=== PATIENT | female | born 1940 | race Caucasian/White ===

== ENCOUNTER → 2017-12-23 | Outpatient (REF) | payer OTHER, MEDICAID ==
[2017-12-23 16:06] LABS: CREATININE FOR GFR 0.73 MG/DL (0.55-1.30); GLOMERULAR FILTRATION RATE > 60.0 (>39)
[2017-12-23 16:06] LABS: BLOOD UREA NITROGEN 17 MG/DL (7-18)
== END ==
LOC: M LABDRAW1 15:13
DX: M51.36 Other intervertebral disc degeneration, lumbar region (principal)

== ENCOUNTER 2018-09-23 09:32 | Inpatient (IN) | payer MEDICARE, MEDICAID ==
--- NOTE | 2018-09-19 23:27 | HPE ---
DATE OF ADMISSION: 09/23/2018 ATTENDING PHYSICIAN: Dr. Javier Joel CHIEF COMPLAINT: Left hip pain and stiffness. HISTORY: This is a pleasant 77-year-old female patient with progressively worsening left hip pain and stiffness. She has failed to improve with conservative management and has elected for surgery for her continuing symptoms. She has consented for a left total hip arthroplasty by Dr. Javier Joel. ALLERGIES: CILLINS and ERYTHROMYCIN. CURRENT MEDICATIONS: DICTATION ENDS HERE
--- NOTE | 2018-09-22 14:05 | HPE ---
DATE OF ADMISSION: 09/23/2018 ATTENDING PHYSICIAN: Dr. Javier Joel CHIEF COMPLAINT: Left hip pain and stiffness. HISTORY: This is a pleasant 77-year-old female patient with progressively worsening left hip pain and stiffness. She has failed to improve with conservative management and has elected for surgery for her continuing symptoms. She has consented for a left total hip arthroplasty by Dr. Javier Joel. ALLERGIES: CILLINS and ERYTHROMYCIN. CURRENT MEDICATIONS: - albuterol three times a day p.r.n. - C-PAP - meloxicam 7.5 half a tablet daily - omeprazole 40 mg one p.o. every other day - pravastatin 20 mg one p.o. daily PAST MEDICAL HISTORY: Hypercholesterolemia, asthma, anxiety, depression, Sjogren syndrome, renal cyst, Cricket syndrome, lumbosacral radiculopathy, gastroesophageal reflux disease, transient ischemic attack, fibromyalgia, vitamin D deficiency, osteoporosis. PAST SURGICAL HISTORY: Ovarian cyst removal, sinus surgery, tendon release, breast biopsy. FAMILY HISTORY: Father - cancer. Mother - cancer. SOCIAL HISTORY: The patient does not smoke or consume alcohol. REVIEW OF SYSTEMS: Denies fever, chills, chest pain, shortness breath, nausea, vomiting, or diarrhea. Denies any recent upper respiratory or urinary tract infection symptoms. PHYSICAL EXAMINATION: Height 5 feet, weight 178, temperature 98.7, blood pressure 130/70, pulse 71, respirations 17. She is a normocephalic, atraumatic female patient who is alert and oriented and has appropriate mood and affect. S1 and S2 auscultated with no murmurs, rubs or gallops. Lungs: Clear to auscultation bilaterally with no wheezes, rales or rhonchi. Abdomen: Soft, nontender. Examination of the left hip reveals discomfort with range of motion. Overlying skin is intact. The left lower extremity is well perfused. LABORATORY DATA: White blood count 7.6, red blood count 4.7, hemoglobin 14.2, hematocrit 44.1, BUN 19, creatinine 0.8. ESR is 24. EKG: Normal sinus rhythm. Abnormal R-wave progression. Late transition. Old inferior infarct. CHEST X-RAY: No focal consolidation or acute cardiopulmonary process. MEDICAL OPTIMIZATION: By Dr. Cornelius reviewed and on chart today. IMPRESSION: Symptomatic left hip arthritis. PLAN: Consented for left total hip arthroplasty by Dr. Joel
[2018-09-23] VITALS (16 sets, daily range): BP systolic 112–153; BP diastolic 53–123; O2SAT 99
[~2018-09-23] VITALS: Ht 152.4 cm; Wt 77.1 kg
[~2018-09-23 09:32] MED LIST: ACET-683 PO; CelecoXIB 400 MG CAP PO ONE; LR 1,000 ML IV ONE; MELO7.5T35 PO; OMEP40CA2 PO; PREGABALIN 75 MG CAP(LYRICA) PO ONE
[2018-09-23 10:20] LABS: INR 0.93; PROTHROMBIN TIME 12.2 SECONDS (11.8-14.0)
[2018-09-23] MEDS ORDERED: VITA30004 PO (10:59)
[2018-09-23] MEDS ORDERED: PRAV10TA3 PO (10:59)
[2018-09-23] MEDS ORDERED: PROPOFOL 200 MG/20 ML VIAL As Ordered ONE ×2 (11:52→14:57)
[2018-09-23] MEDS ORDERED: LIDOCAINE 2% INJ 100 MG/5 ML SDV (FOR ANES.) As Ordered ONE (11:52)
[2018-09-23] MEDS ORDERED: MIDAZOLAM INJ 2 MG/2 ML VIAL (J2250) As Ordered ONE ×3 (11:52→15:56)
[2018-09-23] MEDS ORDERED: fentaNYL 100 MCG/2 ML INJECTION (J3010) As Ordered ONE ×2 (11:52→16:36)
[2018-09-23] MEDS ORDERED: BUPIVACAINE/EPIN 0.25% 30 ML VIAL As Ordered ONE (11:55)
[2018-09-23] MEDS ORDERED: BUPIVACAINE HCL 0.5% 10 ML VIAL As Ordered ONE (11:55)
[2018-09-23] MEDS ORDERED: TRANEXAMIC ACID 100 MG/ML 10ML VIAL As Ordered ONE (11:55)
[2018-09-23] MEDS ORDERED: BUPIVACAINE LIPOSOME/PF 1.3% 20ML VIAL (13.3MG/ML)(EXPAREL)(C9290 PER1MG) As Ordered ONE (11:55)
[2018-09-23] MEDS ORDERED: ceFAZolin 1GM INJ (J0690 PER 500MG) As Ordered ONE (11:55)
[2018-09-23] MEDS ORDERED: EPINEPHrine INJ 1 MG/ML 1ML AMP As Ordered ONE (11:55)
[2018-09-23] MEDS ORDERED: ceFAZolin 2 GM/D5W 50 ML IV BAG (J0690 PER 500MG) As Ordered ONE (12:38)
[2018-09-23] MEDS ORDERED: ePHEDrine SULFATE 25 MG/5 ML(5MG/ML) SYRINGE As Ordered ONE (13:49)
[2018-09-23] MEDS ORDERED: KETAMINE HCL 200 MG/20 ML VIAL As Ordered ONE (13:51)
[2018-09-23] MEDS ORDERED: ACETAMINOPHEN 1000MG 100ML IV BTL (OFIRMEV) (J0131 PER 10MG) As Ordered ONE (14:00)
[2018-09-23] MEDS ORDERED: PHENYLephrine HCL 500 MCG/5 ML (100MCG/ML) SYRINGE (J2370) As Ordered ONE (14:24)
[2018-09-23] MEDS ORDERED: ONDANSETRON 4MG/2ML VIAL (J2405) As Ordered ONE (15:33)
[2018-09-23] MEDS: fentaNYL 100 MCG/2 ML INJECTION (J3010) IV PRN ×4 (16:36→16:56)
[2018-09-23] MEDS ORDERED: PERCOCET 5MG/325MG TAB As Ordered ONE (16:36)
[2018-09-23] MEDS: PERCOCET 5MG/325MG TAB PO PRN ×3 (16:36→21:38)
[2018-09-23] MEDS ORDERED: HYDROMORPHONE HCL 0.5 MG/ 0.5 ML SYRINGE (J1170 PER 1) IV PRN ×3 (16:45→17:00)
[2018-09-23] MEDS ORDERED: ONDANSETRON 4MG/2ML VIAL (J2405) IV PRN (16:45)
[2018-09-23] MEDS ORDERED: LR 1,000 ML IV SCH (16:45)
--- NOTE | 2018-09-23 17:11 | REP ---
Clinical: Status post left hip replacement. Technique: AP and cross-table lateral views. Findings: The patient is noted to be status post left hip arthroplasty with normal appearance and positioning to the femoral and acetabular components. Overlying postsurgical changes are appreciated. Impression: Normal status post left hip arthroplasty. Electronically Signed by Konstantin Spangelr MD 09/23/2018 05:03 P
[2018-09-23] MEDS ORDERED: PROMETHAZINE INJ 25 MG/ML VIAL (J2550) IV PRN (17:15)
[2018-09-23] MEDS ORDERED: FLEET ENEMA PR PRN (17:15)
[2018-09-23] MEDS ORDERED: ACETAMINOPHEN TAB 650MG DOSE (2X325MG) PO PRN ×2 (17:15)
--- NOTE | 2018-09-23 17:18 | CR.PDOC ---
General Date of Consultation: Sep 23, 2018 Consultation REASON FOR CONSULTATION/CHIEF COMPLAINT: - Who presented to [facility] for an elective orthopedic procedure. - Medical management HISTORY OF PRESENT ILLNESS: Patient is a 77-year-old female with a PMHx of TIA (2015), Asthma, DLP, Sjogren Syndrome, Art Syndrome, Lumbosacral radiculopathy / Chronic back pain, Vitamin D deficiency, Osteoporosis, GERD who presented to [facility] for an elective total left hip arthroplasty. Patient received medical clearance from her outpatient provider, Dr. Lagos. Completed blood work, EKG, and CXR. Patient had reported that she had failed conservative therapy and was scheduled for an elective procedure with orthopedic surgery. Patient was seen postoperatively. She denied chest pain, shortness of breath, palpitations, nausea, vomiting, abdominal pain, constipation, diarrhea, discomfort with urination. Patient has reported that her appetite is generally fine and that her weight has been fairly consistent. ALLERGIES: Please see below. HOME MEDICATIONS: Please see below. PAST MEDICAL HISTORY: TIA (2016), Asthma, DLP, Sjogren Syndrome, Art Syndrome, Lumbosacral radiculopathy / Chronic back pain, Vitamin D deficiency, Osteoporosis, GERD PAST SURGICAL HISTORY: Ovarian cyst removal Sinus surgery Carpal tunnel release Breast biopsy on the right, reported negative FAMILY HISTORY: - Mother and father with a history of malignancy SOCIAL HISTORY: - Denies the use of illicit drugs; social alcohol use; patient quit smoking 18 years ago - Denies recent travel or sick contacts - Lives with friend - Occupation; retired; used to work in the [employer] REVIEW OF SYSTEMS: 10 point review of systems complete, all negative otherwise stated in HPI PHYSICAL EXAMINATION: - Vitals: BP 144/71, HR 76, RR 18, Sat 97%RA, Temp 98.3F - General: Lying in bed, No acute distress, Speaking in full sentences, AAOx3 - HEENT: NC, AT, PERRLA - CVS: RRR, +S1S2 - Lungs: Fair air entry bilaterally, No appreciable wheezing / rales / rhonchi - Abdomen: Soft, Non-distended, Non-tender - Extremities: No lower extremity edema, No calf tenderness, Left hip with dressing present - Neuro: No focal motor or sensory deficit - Skin: No visible rashes LABORATORY DATA: Please see below. ASSESSMENT/PLAN: Left hip pain - s/p Total Left hip arthroplasty (POD#0) - Presented to [facility] for an elective orthopedic procedure - Received outpatient medical clearance from her primary care provider - Pain control, anticoagulation and physical therapy at the direction of primary orthopedic team TIA (2015) Asthma - No evidence of exacerbation - c/w inhaled therapy PRN DLP - Will resume Pravastatin Sjogren Syndrome - Patient has reported that she was taken off medications Lumbosacral radiculopathy / Chronic back pain - c/w current pain control regimen Vitamin D deficiency - will resume supplementation as an outpatient Osteoporosis GERD / Art Syndrome - Will resume Omeprazole DVT prophylaxis - as per orthopedic surgery Vital Signs/I&O Vital Signs Date Time Temp Pulse Resp B/P (MAP) Pulse Ox O2 Delivery O2 Flow Rate FiO2 09/23/18 17:07 97.9 70 16 128/59 92 3.0 Laboratory Data Labs 24H Laboratory Tests 2 09/23/18 09:53: Prothrombin Time 12.2, Prothromb Time International Ratio 0.93 Allergies Coded Allergies: No Known Allergies (Unverified , 09/23/18) Home Medications Scheduled Acetaminophen (Acetaminophen) 500 Mg Tablet, 1 TAB PO BID for fever for 30 Days, #60 (Reported) Cholecalciferol (Vitamin D3) (Vitamin D3) 3,000 Unit Tablet, 3,000 UNIT PO DAILY, (Reported) Meloxicam (Meloxicam) 7.5 Mg Tablet, 7.5 MG PO DAILY, (Reported) Omeprazole (Omeprazole) 40 Mg Capsule.dr, 40 MG PO DAILY for 30 Days, #30 (Reported) Pravastatin Sodium (Pravastatin Sodium) 10 Mg Tablet, 10 MG PO DAILY, (Reported) JULIA LOMELI MD Sep 23, 2018 17:18
[2018-09-24 01:03] VITALS: BP 118/64
[2018-09-24] MEDS: PERCOCET 5MG/325MG TAB PO PRN ×3 (04:51→21:25)
[2018-09-24 06:41] VITALS: BP 116/62
[2018-09-24 06:55] LABS: HEMATOCRIT 35.5 % (36.0-47.0); HEMOGLOBIN 11.5 g/dl (12.0-15.5); MEAN CORPUSCULAR HEMOGLOBIN 31.3 pg (27.0-33.0); MEAN CORPUSCULAR HGB CONC 32.4 g/dl (32.0-36.5); MEAN CORPUSCULAR VOLUME 96.5 fl (80.0-96.0); PLATELET COUNT, AUTOMATED 233 10^3/uL (150-450); RED BLOOD COUNT 3.68 10^6/uL (4.00-5.40); WHITE BLOOD COUNT 10.3 10^3/uL (4.0-10.0)
[2018-09-24] MEDS ORDERED: CelecoXIB (CeleBREX) 100 MG CAP PO ONE (08:15)
[2018-09-24 08:40] LABS: BLOOD UREA NITROGEN 14 MG/DL (7-18); CALCIUM LEVEL 8.5 MG/DL (8.8-10.2); CARBON DIOXIDE LEVEL 29 MEQ/L (21-32); CHLORIDE LEVEL 105 MEQ/L (98-107); CREATININE FOR GFR 0.82 MG/DL (0.55-1.30); GLOMERULAR FILTRATION RATE > 60.0 (>39); GLUCOSE, FASTING 136 MG/DL (70-100); MAGNESIUM LEVEL 1.9 MG/DL (1.8-2.4); POTASSIUM SERUM 4.2 MEQ/L (3.5-5.1); SODIUM LEVEL 140 MEQ/L (136-145)
[2018-09-24] MEDS: MOM 30ML SUSPENSION UDC PO SCH ×2 (09:00→09:39)
[2018-09-24] MEDS: MIRALAX *UNIT DOSE* 17GM PACKET PO SCH (09:39)
[2018-09-24] MEDS: PREGABALIN 75 MG CAP(LYRICA) PO SCH (09:39)
[2018-09-24] MEDS: OMEPRAZOLE 20 MG CAP PO SCH (09:39)
[2018-09-24 10:00] VITALS: BP 116/73
[2018-09-24] MEDS: PRAVASTATIN 10 MG TAB PO SCH (10:44)
[2018-09-24] MEDS ORDERED: LORazepam 1 MG TAB PO PRN (10:45)
[2018-09-24 14:00] VITALS: BP 121/60
--- NOTE | 2018-09-24 14:45 | IPNPDOC ---
Text Note Date of Service The patient was seen on 09/24/18. NOTE Subjective: Patient is a 77-year-old female with a PMHx of TIA (2015), Asthma, DLP, Sjogren Syndrome, Art Syndrome, Lumbosacral radiculopathy / Chronic back pain, Vitamin D deficiency, Osteoporosis, GERD who presented to [facility] for an elective total left hip arthroplasty. Patient had reported that she had failed conservative therapy and was scheduled for an elective procedure with orthopedic surgery. Patient was admitted to orthopedic service, and hospitalist service was called for medical management. Patient was seen and examined at the bedside. Current patient denies a chest pain, shortness of breath or palpitations. They do report some pain and will be working with physical therapy. Patient does report constipation/ Objective: Vitals (See below) General: Lying in bed, no acute distress, comfortable, AAOx3 HEENT: NC, AT CVS: RRR, +S1S2 Lungs: Fair air entry b/l, no appreciable wheezing, rhonchi or rales Abdomen: Soft, ND, NT Extremities: - Edema, - Calf tenderness, left hip with dressing Assessment and plan: Left hip pain - s/p Total Left hip arthroplasty (POD#1) - Presented to [facility] for an elective orthopedic procedure - Received outpatient medical clearance from her primary care provider - Pain control, anticoagulation and physical therapy at the direction of primary orthopedic team DAMI (2015) Asthma - No evidence of exacerbation - c/w inhaled therapy PRN DLP - c/w Pravastatin Sjogren Syndrome - Patient has reported that she was taken off medications Lumbosacral radiculopathy / Chronic back pain - c/w current pain control regimen Vitamin D deficiency - will resume supplementation as an outpatient Osteoporosis GERD / Art Syndrome - c/w Omeprazole DVT prophylaxis - as per orthopedic surgery VS,Fishbone, I+O VS, Fishbone, I+O Laboratory Tests 09/24/18 06:28 Calcium Level 8.5 L 09/24/18 06:30 Red Blood Count 3.68 L, Mean Corpuscular Volume 96.5 H, Mean Corpuscular Hemoglobin 31.3, Mean Corpuscular Hemoglobin Concent 32.4, Red Cell Distribution Width 13.2 Vital Signs Date Time Temp Pulse Resp B/P (MAP) Pulse Ox O2 Delivery O2 Flow Rate FiO2 09/24/18 10:10 18 09/24/18 10:00 99.1 108 116/73 (87) 98 2.0 09/23/18 22:26 Nasal Cannula I&O- Last 24 Hours up to 6 AM 09/24/18 05:59 Intake Total 2440 ml Output Total 200 ml Balance 2240 ml JULIA LOMELI MD Sep 24, 2018 14:45
--- NOTE | 2018-09-24 17:17 | RO ---
DATE OF PROCEDURE: 09/24/2018 PREOPERATIVE DIAGNOSIS: Osteoarthritis of the left hip. POSTOPERATIVE DIAGNOSIS: Osteoarthritis of the left hip. PROCEDURE PERFORMED: Left total hip replacement. SURGEON: Dr. Joel ESCROW MANAGER: SURAJ Mabry. ANESTHESIA: Spinal. ESTIMATED BLOOD LOSS: 250 mL or less, replaced with crystalloid. COMPLICATIONS: No complications. COMPONENTS USED: Included DePuy [place] system size 3 femoral stem size +5 neck length, size 32 to the femoral head metallic, size 50 polyethylene liner, size 50 acetabular shell sector type. [place] hole eliminator two 5 mm x 15 mm acetabular screws. INDICATIONS: Groin pain, affecting the left hip and radiographic evidence including plain film and MRI evidence of the degenerative change. The patient has elected for operative intervention. Consent reviewed in detail including a serenity discussion of the pathology involved, the procedure proposed, alternatives including doing nothing and risks including but not limited to pain, failure, infection, bleeding blood loss, incomplete relief of symptoms need for additional surgery and other issues. The patient agrees to proceed. OPERATIVE COURSE: She was identified the preoperative area and we reviewed the medical record and consent. She was brought to the operating room. The spinal was administered. We positioned the patient on the [place] frame for exposure of the left hip. I was involved in the lateral decubitus positioning for the modified Hernandez approach. When I and the lawyer criminal were comfortable with the patient's positioning she was then sterilely prepped and draped in usual fashion for exposure. Next, time-out was accomplished. Next, incision was outlined with a marking pen infiltrated with 0.25% Marcaine with epinephrine over the lateral aspect of the greater trochanter the patient's body habitus was such that most of the soft tissue seemed to be concentrated around the hip region. The incision was approximately 18 cm long and made with a 10 blade knife developed down through subcuticular tissues to the lateral fascia. Lateral fascia was divided longitudinally exposing the abductor mechanism. Slit was created in the anterior one-third of the abductor mechanism. Tag stitch was installed, Hernandez were installed arthrotomy was accomplished using the Bovie cautery along the femoral neck reflecting the abductor mechanism the anteriorly retaining a cuff tissue on the greater trochanter for later repair. The lateralis was split parallel with the fibers. Dissection continued inferiorly releasing the capsule along the femoral neck and splitting the acetabular labrum. Next we were then able to place the bone hook and Ms. Colunga manipulated the lower extremity for dislocation of the hip. Once the hip was dislocated we positioned in the sterile bag. Ms. Colunga studied the hip. I opened the femoral canal using a canal opening reamer followed by the canal finding reamer followed by the lateralizing reamer followed by conical reamers through a size 3 which fit appropriately as templated. Next once this was accomplished neck cut template was installed. I made the neck cut using the oscillating saw while Ms. Colunga positioned and protected soft tissues. Next the femoral head and neck were removed the femoral head was appreciated significantly arthritic with [id number] with bare bone at the weightbearing surface of the operative proximal end of the femoral head. Next once this was accomplished we verified that the femoral neck cut was approximately one fingerbreadth from the lesser trochanter. We broached through a size three broach which fit appropriately. Next we placed anterior and posterior retractors and I then exposed the hip. Ms. Colunga secured the retractors while I removed the acetabular labrum and cleared the floor of the acetabular fossa. Acetabular overall orientation seemed to be somewhat retroverted even after adjustment of the soft tissue by manipulation seemed to have a somewhat neutral acetabular anatomic orientation. Next, hemispherical reamers were utilized beginning with a size 46 and working through a size 48. We did trial a size 48 which seemed to be a bit under sized so we reamed through a size 49 reamer. We reamed to the floor of the acetabulum. Next we obtained a size 50 cup because of the somewhat dysplastic or retroverted overall orientation of the acetabulum. I elected to place a sector cup and screws. I implanted the acetabular shell it did seem to fit securely and appropriately as I did place a pair of 15 mm acetabular screws in the posterior superior quadrant. These were drilled, measured and placed. Next, I placed a non trial 32 mm 0 degree acetabular alignment. Next attention was turned to the femoral side. Ms. Colunga manipulated the hip exposure. I placed the three broach and we trialed for a size +5 neck length with a 32 mm femoral head. There was good stability with traction with external rotation and internal rotation and abduction. I was not able to sublux the femoral head out of the acetabulum in any of these position. Next, once this was accomplished the trial components were removed. We did have place TXA solution within the wound antibiotics stand for 1 minute. We also anesthetized around the capsule using Exparel local anesthetic solution for perioperative pain control. We also removed some acetabular osteophyte anteriorly. Next, non trial components were obtained the non trial femoral component was installed tamped into place the non trial +5 32 mm femoral head was installed tamped into place with nylon impactor with the help Sonya Jaimeruthie we reduced the hip. Next, irrigation was accomplished the hip was again placed a range motion and appeared to be stable. The capsular and medius tissues were reapproximated with interrupted stitch. Abductor mechanism further reapproximated to cuff tissue on greater trochanter using interrupted and mattress stitches. Next the lateral fascia was reapproximated with interrupted stitch as well as running Stratafix stitch. Additional Exparel solution was injected around the subcuticular tissue as well as the fascial tissue. Subcuticular stitches interrupted were utilized on skin, followed by placement of a pernio dressing. Next, once this was accomplished the Dimitri table was able to the D constructed the patient was moved to the supine position. Pillows placed between the knees. She was moved to the hospital bed in good condition. For further details please refer to the medical record. Sonya Cristine was present and participated in the entirety case in the capacity of optometry assistant. I was present throughout the entirety of the case including application of the pernio dressing.
[2018-09-24 18:00] VITALS: BP 115/62
[2018-09-24] MEDS ORDERED: RIVAROXABAN 10 MG TAB (XARELTO) PO ONE (18:00)
[2018-09-24 22:00] VITALS: BP 122/62
[2018-09-25 02:00] VITALS: BP 100/55
[2018-09-25 06:00] VITALS: BP 122/61
[2018-09-25] MEDS: PERCOCET 5MG/325MG TAB PO PRN ×4 (06:28→23:08)
[2018-09-25] MEDS ORDERED: PERC5TAB12 PO (06:54)
[2018-09-25] MEDS ORDERED: XARE10TA PO (06:54)
[2018-09-25] MEDS ORDERED: MAGNESIUM CITRATE 300 ML BTL PO ONE (09:00)
[2018-09-25] MEDS: PREGABALIN 75 MG CAP(LYRICA) PO SCH (09:00)
[2018-09-25] MEDS: MIRALAX *UNIT DOSE* 17GM PACKET PO SCH (09:02)
[2018-09-25] MEDS: METAMUCIL (PSYLLIUM) PACKET PO SCH ×2 (09:02→20:19)
[2018-09-25] MEDS: OMEPRAZOLE 20 MG CAP PO SCH (09:04)
[2018-09-25] MEDS: PRAVASTATIN 10 MG TAB PO SCH (09:04)
--- NOTE | 2018-09-25 13:02 | IPNPDOC ---
Text Note Date of Service The patient was seen on 09/25/18. NOTE Subjective: Patient is a 77-year-old female with a PMHx of TIA (2016), Asthma, DLP, Sjogren Syndrome, Art Syndrome, Lumbosacral radiculopathy / Chronic back pain, Vitamin D deficiency, Osteoporosis, GERD who presented to [facility] for an elective total left hip arthroplasty. Patient had reported that she had failed conservative therapy and was scheduled for an elective procedure with orthopedic surgery. Patient was admitted to orthopedic service, and hospitalist service was called for medical management. Patient was seen and examined at the bedside. . They report that they're still experiencing some constipation. They do report pain. However, there has sent to start higher doses of pain medication because of sleepiness. Patient denies abdominal pain, nausea, vomiting, chest pain. Objective: Vitals (See below) General: Lying in bed, no acute distress, comfortable, AAOx3 HEENT: NC, AT CVS: RRR, +S1S2 Lungs: Fair air entry b/l, there does not appear to be any rhonchi, rales or wheezing on auscultation Abdomen: Soft, nondistended, without tenderness Extremities: No evidence of lower extremity edema, - Calf tenderness, left hip with dressing Assessment and plan: Left hip pain - s/p Total Left hip arthroplasty (POD#2) - Presented to [facility] for an elective orthopedic procedure - Received outpatient medical clearance from her primary care provider - Pain control, anticoagulation and physical therapy at the direction of primary orthopedic team - Patient has been slow to progress with physical therapy and will likely require subacute rehabilitation placement TIA (2016) Asthma - No evidence of exacerbation - c/w inhaled therapy PRN DLP - c/w Pravastatin Sjogren Syndrome - Patient has reported that she was taken off medications by her outpatient provider Lumbosacral radiculopathy / Chronic back pain - c/w current pain control regimen Vitamin D deficiency - will resume supplementation as an outpatient Osteoporosis GERD / Art Syndrome - c/w Omeprazole DVT prophylaxis - as per orthopedic surgery Disposition: - c/w PT - Likely will need ALKA placement VS,Fishbone, I+O VS, Fishbone, I+O Vital Signs Date Time Temp Pulse Resp B/P (MAP) Pulse Ox O2 Delivery O2 Flow Rate FiO2 09/25/18 07:00 18 09/25/18 06:00 99.1 98 122/61 (81) 96 09/24/18 22:00 2.0 09/23/18 22:26 Nasal Cannula I&O- Last 24 Hours up to 6 AM 09/25/18 06:00 Intake Total 2150 ml Output Total 900 ml Balance 1250 ml JULIA LOMELI MD Sep 25, 2018 13:02
[2018-09-25 14:00] VITALS: BP 121/58
[2018-09-25] MEDS ORDERED: RIVAROXABAN 10 MG TAB (XARELTO) PO SCH (18:00)
[2018-09-25 22:00] VITALS: BP 124/66
[2018-09-25] MEDS: ONDANSETRON 4 MG TAB (S0181) PO PRN (23:08)
[2018-09-26 06:00] VITALS: BP 128/67
[2018-09-26] MEDS: PERCOCET 5MG/325MG TAB PO PRN (06:35)
[2018-09-26] MEDS: ONDANSETRON 4 MG TAB (S0181) PO PRN (06:35)
[2018-09-26] MEDS ORDERED: MAGNESIUM CITRATE 300 ML BTL PO ONE (08:00)
[2018-09-26] MEDS: MIRALAX *UNIT DOSE* 17GM PACKET PO SCH (08:58)
[2018-09-26] MEDS: PRAVASTATIN 10 MG TAB PO SCH (08:58)
[2018-09-26] MEDS: OMEPRAZOLE 20 MG CAP PO SCH (08:58)
[2018-09-26] MEDS: PREGABALIN 75 MG CAP(LYRICA) PO SCH (08:59)
[2018-09-26] MEDS: METAMUCIL (PSYLLIUM) PACKET PO SCH (09:00)
[2018-09-26] MEDS ORDERED: MAGNESIUM CITRATE 300 ML BTL PO PRN (10:00)
--- NOTE | 2018-09-26 11:27 | IPNPDOC ---
Text Note Date of Service The patient was seen on 09/26/18. NOTE Subjective: Patient is a 77-year-old female with a PMHx of TIA (2016), Asthma, DLP, Sjogren Syndrome, Art Syndrome, Lumbosacral radiculopathy / Chronic back pain, Vitamin D deficiency, Osteoporosis, GERD who presented to [facility] for an elective total left hip arthroplasty. Patient had reported that she had failed conservative therapy and was scheduled for an elective procedure with orthopedic surgery. Patient was admitted to orthopedic service, and hospitalist service was called for medical management. Patient was seen and examined at the bedside. No complaints of CP, SOB or palpitations, no N/V, abdominal pain, C/D or dysuria. Objective: Vitals (See below) General: Lying in bed, no acute distress, comfortable, AAOx3 HEENT: NC, AT CVS: RRR, +S1S2 Lungs: Fair air entry b/l, no evidence of rhonchi / rales / wheezing Abdomen: Soft, non-distended, non-tenderness Extremities: No evidence of LE pitting edema, - Calf tenderness, left hip with dressing Assessment and plan: Left hip pain - s/p Total Left hip arthroplasty (POD#3) - Presented to [facility] for an elective orthopedic procedure - Received outpatient medical clearance from her primary care provider - Pain control, anticoagulation and physical therapy at the direction of primary orthopedic team - Slow PT progression; will likely need ALKA for placement TIA (2016) Asthma - No evidence of exacerbation - c/w inhaled therapy PRN DLP - c/w Pravastatin Sjogren Syndrome - Patient has reported that she was taken off medications by her outpatient provider Lumbosacral radiculopathy / Chronic back pain - c/w current pain control regimen Vitamin D deficiency - will resume supplementation as an outpatient Osteoporosis GERD / Art Syndrome - c/w Omeprazole DVT prophylaxis - as per orthopedic surgery Disposition: - c/w PT - Patient managed to access a swing bed at [facility] this afternoon for continued inpatient restorative services at this time - Patient remains hopeful to eventually return home with likely home care thereafter VS,Fishbone, I+O VS, Fishbone, I+O Vital Signs Date Time Temp Pulse Resp B/P (MAP) Pulse Ox O2 Delivery O2 Flow Rate FiO2 09/26/18 07:05 18 09/26/18 06:00 98.5 96 128/67 (87) 94 09/24/18 22:00 2.0 09/23/18 22:26 Nasal Cannula I&O- Last 24 Hours up to 6 AM 09/26/18 06:00 Intake Total 760 ml Output Total 1550 ml Balance -790 ml JULIA LOMELI MD Sep 26, 2018 11:27
[2018-09-26 14:00] VITALS: BP 130/65
--- NOTE | 2018-09-26 21:57 | DSES ---
DATE OF ADMISSION: 09/23/2018 DATE OF DISCHARGE: 09/26/2018 ATTENDING PHYSICIAN: Marycruz Joel ADMISSION DIAGNOSIS: 1. Osteoarthritis left hip. DISCHARGE DIAGNOSIS: 1. Osteoarthritis left hip status post left total hip arthroplasty. HISTORY: This is a pleasant patient with persistent left hip pain failed to improve with conservative management. She was admitted for elective hip replacement on the left side. HOSPITAL COURSE: The patient was admitted on day of surgery, underwent a left total hip arthroplasty which was uneventful. HOSPITAL COURSE: The patient was admitted on day of surgery underwent a left total hip arthroplasty which was uneventful. During the postoperative period, due to her medical conditions and other conditions, she did struggle with her requirements of physical therapy and controlling her symptoms, ultimately her symptoms was controlled and it was elected to send her to a halfway facility for further physical therapy and discharge. She had improved. Her pain was controlled. She still needed further physical therapy. She was weightbearing as tolerated on her left hip. She will use anticoagulants per their protocol. She will use RAJIV stockings for 30 days postoperative for deep vein thrombosis (DVT) prophylaxis. She will resume her preoperative medications and diet. She was given instructions to include limited and monitoring activity limitations. She will follow up in our office in 7 to 10 days for surgical followup. She will use oral pain medications for pain control. Please refer the medical record further details.
== END 2018-09-26 14:45 | DRG 470 ==
LOC: M OR 09:32 → M MS5PR 17:25
PROVIDERS: ADMIT Orthopaedic Surgery; ATTEND Orthopaedic Surgery
PROC: 0SRB02Z Replacement of Left Hip Joint with Metal on Polyethylene Synthetic Substitute, Open Approach (ICD-10-PCS; principal; 2018-09-24)
DX: M16.12 Unilateral primary osteoarthritis, left hip (principal); E78.5 Hyperlipidemia, unspecified; J45.909 Unspecified asthma, uncomplicated; F41.9 Anxiety disorder, unspecified; F32.9 Major depressive disorder, single episode, unspecified; M35.00 Sjogren syndrome, unspecified; M79.7 Fibromyalgia; M54.16 Radiculopathy, lumbar region; K21.9 Gastro-esophageal reflux disease without esophagitis; E55.9 Vitamin D deficiency, unspecified; M81.0 Age-related osteoporosis without current pathological fracture; Z86.73 Personal history of transient ischemic attack (TIA), and cerebral infarction without residual deficits; N28.1 Cyst of kidney, acquired; Z79.1 Long term (current) use of non-steroidal anti-inflammatories (NSAID); Z79.899 Other long term (current) drug therapy

== ENCOUNTER → 2019-07-13 | Outpatient (REF) | payer MEDICARE, MEDICAID ==
[~2019-07-13] MED LIST changes: -CelecoXIB 400 MG CAP PO ONE; -LR 1,000 ML IV ONE; -OMEP40CA2 PO; +OMEP40CA97 PO; +PERC5TAB12 PO; +PRAV10TA3 PO; -PREGABALIN 75 MG CAP(LYRICA) PO ONE; +VITA30004 PO; +XARE10TA PO
[2019-07-13 18:06] LABS: APPEARANCE, URINE CLEAR (CLEAR); BACTERIA, URINE AUTO NEGATIVE (NEGATIVE); BILIRUBIN, URINE AUTO NEGATIVE (NEGATIVE); BLOOD, URINE BLOOD 1+ (NEGATIVE); COLOR, URINE YELLOW (YELLOW); GLUCOSE, URINE (UA) AUTO NEGATIVE (NEGATIVE); KETONE, URINE AUTO NEGATIVE (NEGATIVE); LEUKOCYTE ESTERASE, URINE AUTO 2+ (NEGATIVE); NITRITE, URINE AUTO NEGATIVE (NEGATIVE); PROTEIN, URINE AUTO NEGATIVE (NEGATIVE); RBC, URINE AUTO 1 /HPF (0-3); SPECIFIC GRAVITY URINE AUTO 1.008 (1.002-1.035); SQUAMOUS EPITHELIAL CELL UR AU 0 /HPF (0-6); UROBILINOGEN, URINE AUTO 0.2 mg/dL (0.0-2.0); WBC, URINE AUTO 5 /HPF (0-3)
== END ==
LOC: M SMT 17:32
PROVIDERS: ATTEND Nurse Practitioner Family
DX: N32.9 Bladder disorder, unspecified (principal); Z79.899 Other long term (current) drug therapy
CPT/HCPCS: 81001; 87086; 88108; G0463